=== PATIENT | male | born 1935 | race Caucasian/White ===

== ENCOUNTER → 2017-02-15 | Outpatient (CLI) | payer MEDICARE, BC | LOC: LAB 09:41 | DX: I10 Essential (primary) hypertension (principal); I48.2 Chronic atrial fibrillation; Z12.5 Encounter for screening for malignant neoplasm of prostate; E78.2 Mixed hyperlipidemia ==

== ENCOUNTER → 2017-03-12 | Outpatient (CLI) | payer MEDICARE, BC | LOC: LAB 10:10 | DX: E78.2 Mixed hyperlipidemia (principal); I48.2 Chronic atrial fibrillation ==

== ENCOUNTER 2018-06-16 15:00 | Emergency (ER) | payer MEDICARE, BC ==
[~2018-06-16] VITALS: Ht 182.9 cm; Wt 86.8 kg
[2018-06-16] MEDS ORDERED: PRAVACHOL 20MG20 MG PO (15:33)
[2018-06-16] MEDS ORDERED: OMEPRAZOLE40 MG PO (15:33)
[2018-06-16] MEDS ORDERED: LOPRESSOR 550 MG/TAB PO (15:33)
[2018-06-16] MEDS ORDERED: WARFARIN SOD5 MG PO (15:33)
[2018-06-16] MEDS ORDERED: FUROSEMIDE40 MG (15:33)
[2018-06-16] MEDS ORDERED: PACERONE100 MG PO (15:34)
[2018-06-16] MEDS ORDERED: VASOTEC 2.2.5 MG/TAB PO (15:34)
[2018-06-16] MEDS ORDERED: LEVOTHYROXINE0.05 MG PO (15:35)
[2018-06-16] MEDS ORDERED: METOLAZONE5 MG PO (16:50)
[2018-06-16 17:11] VITALS: BP 123/95
== END 2018-06-16 17:08 | disposition home or self-care (01) ==
LOC: ED 15:00
DX: I11.0 Hypertensive heart disease with heart failure (principal); I50.9 Heart failure, unspecified; I25.10 Atherosclerotic heart disease of native coronary artery without angina pectoris; Z95.1 Presence of aortocoronary bypass graft; Z95.5 Presence of coronary angioplasty implant and graft; I48.91 Unspecified atrial fibrillation; Z79.01 Long term (current) use of anticoagulants; Z95.0 Presence of cardiac pacemaker; Z79.899 Other long term (current) drug therapy
CPT/HCPCS: J1940; Q9967

== ENCOUNTER → 2018-06-16 | Outpatient (CLI) | payer MEDICARE, BC ==
[~2018-06-16] MED LIST: FUROSEMIDE40 MG; LEVOTHYROXINE0.05 MG PO; LOPRESSOR 550 MG/TAB PO; METOLAZONE5 MG PO; OMEPRAZOLE40 MG PO; PACERONE100 MG PO; PRAVACHOL 20MG20 MG PO; VASOTEC 2.2.5 MG/TAB PO; WARFARIN SOD5 MG PO
[2018-06-16 13:34] LABS: EOS % 0.6 % (0.0-4.0); HEMOGLOBIN 14.1 g/dL (13.5-18.0); MEAN CELL VOLUME 94 fl (78-100); MEAN CORPUSCULAR HEMOGLOBIN 31 pg (27-31); MEAN CORPUSCULAR HGB CONC 33 g/dL (33-37); MEAN PLATELET VOLUME 10.7 fl (7.4-10.4); MONO # 0.6 (0.20-0.80); NEU # 5.3 (1.40-6.50); PLATELET COUNT 95 K/mm3 (130-400); RED BLOOD COUNT 4.57 M/mm3 (4.20-5.60); RED CELL DISTRIBUTION WIDTH 15.3 % (11.5-14.5); WHITE BLOOD COUNT 6.9 K/mm3 (4.8-10.8)
[2018-06-16 13:47] LABS: PROTHROMBIN TIME 24.7 SECONDS (9.0-12.0)
[2018-06-16 13:50] LABS: ALBUMIN 3.6 g/dL (3.5-5.0); BUN/CREATININE RATIO 13.9 (6.0-26.0); CALCIUM 8.5 mg/dL (8.4-10.2); POTASSIUM 3.8 mmol/L (3.6-5.0); TOTAL BILIRUBIN 0.7 mg/dL (0.2-1.3); TOTAL PROTEIN 6.4 g/dL (6.3-8.2)
[2018-06-16 14:47] LABS: ERYTHROCYTE SEDIMENTATION RATE 14 mm/hr (0-20)
== END ==
LOC: RAD 13:19
PROVIDERS: Internal Medicine
DX: R06.00 Dyspnea, unspecified (principal); E78.5 Hyperlipidemia, unspecified; I48.91 Unspecified atrial fibrillation; I10 Essential (primary) hypertension; Z12.5 Encounter for screening for malignant neoplasm of prostate; Z12.11 Encounter for screening for malignant neoplasm of colon; Z95.1 Presence of aortocoronary bypass graft; Z95.9 Presence of cardiac and vascular implant and graft, unspecified; Z95.0 Presence of cardiac pacemaker; Z98.890 Other specified postprocedural states

== ENCOUNTER → 2018-06-23 | Outpatient (CLI) | payer MEDICARE, BC ==
[2018-06-16 17:11] VITALS: BP 123/95
== END ==
LOC: LAB 11:30
DX: I50.9 Heart failure, unspecified (principal)

== ENCOUNTER → 2018-06-24 | Outpatient (CLI) | payer MEDICARE, BC ==
[2018-06-16 17:11] VITALS: BP 123/95
[2018-06-24 18:43] LABS: ALBUMIN 4.3 g/dL (3.5-5.0); CALCIUM 9.1 mg/dL (8.4-10.2); TOTAL BILIRUBIN 0.8 mg/dL (0.2-1.3); TOTAL PROTEIN 7.7 g/dL (6.3-8.2)
[2018-06-24 19:53] LABS: POTASSIUM 2.4 mmol/L (3.6-5.0)
[2018-06-25 10:59] LABS: EOS % 0.4 % (0.0-4.0); HEMATOCRIT 47.2 % (42.0-52.0); HEMOGLOBIN 15.7 g/dL (13.5-18.0); LYMPH# 1.4 (1.50-4.00); MEAN CELL VOLUME 91 fl (78-100); MEAN CORPUSCULAR HEMOGLOBIN 30 pg (27-31); MEAN CORPUSCULAR HGB CONC 33 g/dL (33-37); MEAN PLATELET VOLUME 10.3 fl (7.4-10.4); MONO # 0.9 (0.20-0.80); NEU # 5.8 (1.40-6.50); PLATELET COUNT 156 K/mm3 (130-400); RED BLOOD COUNT 5.19 M/mm3 (4.20-5.60); RED CELL DISTRIBUTION WIDTH 14.4 % (11.5-14.5); WHITE BLOOD COUNT 8.2 K/mm3 (4.8-10.8)
== END ==
LOC: LAB 17:46
PROVIDERS: Internal Medicine
DX: I50.9 Heart failure, unspecified (principal); I25.10 Atherosclerotic heart disease of native coronary artery without angina pectoris; E03.9 Hypothyroidism, unspecified

== ENCOUNTER → 2018-06-30 | Outpatient (CLI) | payer MEDICARE, BC ==
[2018-06-16 17:11] VITALS: BP 123/95
[2018-06-30 11:32] LABS: CALCIUM 8.9 mg/dL (8.4-10.2); POTASSIUM 3.1 mmol/L (3.6-5.0); TOTAL BILIRUBIN 0.7 mg/dL (0.2-1.3); TOTAL PROTEIN 7.2 g/dL (6.3-8.2)
== END ==
LOC: LAB 10:52
PROVIDERS: Internal Medicine
DX: I50.9 Heart failure, unspecified (principal); I25.10 Atherosclerotic heart disease of native coronary artery without angina pectoris; E03.9 Hypothyroidism, unspecified

== ENCOUNTER → 2018-07-01 | Outpatient (CLI) | payer MEDICARE, BC ==
[2018-06-16 17:11] VITALS: BP 123/95
== END ==
LOC: CARDLAB 06-26 14:55 → CARDREHAB 11:45
DX: G47.33 Obstructive sleep apnea (adult) (pediatric) (principal); G47.10 Hypersomnia, unspecified; R06.83 Snoring; Z68.29 Body mass index [BMI] 29.0-29.9, adult; R06.00 Dyspnea, unspecified; R53.83 Other fatigue
CPT/HCPCS: G0399

== ENCOUNTER → 2018-07-08 | Outpatient (CLI) | payer MEDICARE, BC ==
[2018-06-16 17:11] VITALS: BP 123/95
[2018-07-08 15:47] LABS: POTASSIUM 3.2 mmol/L (3.6-5.0); TOTAL BILIRUBIN 0.5 mg/dL (0.2-1.3)
== END ==
LOC: LAB 14:46
PROVIDERS: Internal Medicine
DX: I50.9 Heart failure, unspecified (principal); I25.10 Atherosclerotic heart disease of native coronary artery without angina pectoris; I48.91 Unspecified atrial fibrillation; E03.9 Hypothyroidism, unspecified

== ENCOUNTER → 2018-08-18 | Outpatient (CLI) | payer MEDICARE, BC ==
[2018-08-18 10:57] LABS: CALCIUM 9.2 mg/dL (8.4-10.2); POTASSIUM 3.7 mmol/L (3.6-5.0)
== END ==
LOC: LAB 10:36
PROVIDERS: Internal Medicine
DX: I50.9 Heart failure, unspecified (principal)

== ENCOUNTER → 2018-10-29 | Outpatient (CLI) | payer MEDICARE, BC ==
[2018-10-29 10:30] LABS: EOS # 0.1 (0.04-0.40); EOS % 2.9 % (0.0-4.0); HEMATOCRIT 37.4 % (42.0-52.0); HEMOGLOBIN 12.1 g/dL (13.5-18.0); MEAN CELL VOLUME 96 fl (78-100); MEAN CORPUSCULAR HEMOGLOBIN 31 pg (27-31); MEAN CORPUSCULAR HGB CONC 32 g/dL (33-37); MEAN PLATELET VOLUME 10.1 fl (7.4-10.4); MONO # 0.5 (0.20-0.80); NEU # 3.2 (1.40-6.50); PLATELET COUNT 137 K/mm3 (130-400); RED BLOOD COUNT 3.89 M/mm3 (4.20-5.60); RED CELL DISTRIBUTION WIDTH 14.3 % (11.5-14.5); WHITE BLOOD COUNT 4.9 K/mm3 (4.8-10.8)
[2018-10-29 11:29] LABS: ALBUMIN 3.8 g/dL (3.5-5.0); CALCIUM 8.6 mg/dL (8.4-10.2); TOTAL BILIRUBIN 0.5 mg/dL (0.2-1.3); TOTAL PROTEIN 6.6 g/dL (6.3-8.2)
== END ==
LOC: LAB 10:19
PROVIDERS: Internal Medicine
DX: I50.22 Chronic systolic (congestive) heart failure (principal); I48.91 Unspecified atrial fibrillation; E03.9 Hypothyroidism, unspecified

== ENCOUNTER → 2019-03-27 | Outpatient (CLI) | payer MEDICARE, BC | LOC: LAB 11:57 | DX: L03.116 Cellulitis of left lower limb (principal); I83.228 Varicose veins of left lower extremity with both ulcer of other part of lower extremity and inflammation ==

== ENCOUNTER → 2019-04-14 | Outpatient (CLI) | payer MEDICARE, BC | LOC: LAB 14:37 | DX: I50.9 Heart failure, unspecified (principal) ==

== ENCOUNTER → 2019-04-23 | Outpatient (CLI) | payer MEDICARE, BC ==
[2019-04-23 17:13] LABS: POTASSIUM 3.7 mmol/L (3.5-5.1)
[2019-04-23 17:14] LABS: CALCIUM 9.4 mg/dL (8.3-10.5)
== END ==
LOC: LAB 16:31
PROVIDERS: Internal Medicine Cardiovascular Disease
DX: R06.02 Shortness of breath (principal)

== ENCOUNTER → 2020-01-18 | Outpatient (CLI) | payer MEDICARE, BC ==
[2020-01-18 10:40] LABS: HEMATOCRIT 41.3 % (42.0-52.0); HEMOGLOBIN 13.3 g/dL (13.5-18.0); MEAN CELL VOLUME 95 fl (78-100); MEAN CORPUSCULAR HEMOGLOBIN 31 pg (27-31); MEAN CORPUSCULAR HGB CONC 32 g/dL (33-37); MEAN PLATELET VOLUME 9.8 fl (7.4-10.4); PLATELET COUNT 196 K/mm3 (130-400); RED BLOOD COUNT 4.35 M/mm3 (4.20-5.60); RED CELL DISTRIBUTION WIDTH 13.6 % (11.5-14.5)
[2020-01-18 10:50] LABS: ALBUMIN 3.7 g/dL (3.4-4.8)
[2020-01-18 10:51] LABS: CALCIUM 9.5 mg/dL (8.3-10.5)
[2020-01-18 10:53] LABS: TOTAL PROTEIN 7.8 g/dL (6.2-8.1)
[2020-01-18 10:55] LABS: TOTAL BILIRUBIN 0.5 mg/dL (0.2-1.2); URINE APPEARANCE CLEAR; URINE BILIRUBIN NEGATIVE (NEGATIVE); URINE BLOOD NEGATIVE (NEGATIVE); URINE COLOR YELLOW; URINE KETONE NEGATIVE (NEGATIVE); URINE LEUKOCYTE ESTERASE NEGATIVE (NEGATIVE); URINE MUCUS PRESENT (NOT PRESENT); URINE NITRATE NEGATIVE (NEGATIVE); URINE PROTEIN(semi-quant) TRACE mg/dL (NEGATIVE); URINE UROBILINOGEN NORMAL (NORMAL); URINE WBC 0-1 /hpf (0-3)
[2020-01-18 10:59] LABS: LYMPHOCYTE 14 % (20-51); MONOCYTE 9 % (3-10); NEUTROPHILS 75 % (42-75)
[2020-01-18 11:00] LABS: MAGNESIUM 2.54 mg/dL (1.60-2.60)
[2020-01-18 12:19] LABS: ERYTHROCYTE SEDIMENTATION RATE 95 mm/hr (0-20)
[2020-01-18 22:08] LABS: TESTOSTERONE 270 ng/dL (221-716)
== END ==
LOC: LAB 10:28
PROVIDERS: Internal Medicine
DX: I25.10 Atherosclerotic heart disease of native coronary artery without angina pectoris (principal); I10 Essential (primary) hypertension; D64.9 Anemia, unspecified; E03.9 Hypothyroidism, unspecified; N52.9 Male erectile dysfunction, unspecified; R97.20 Elevated prostate specific antigen [PSA]; R20.2 Paresthesia of skin; R35.0 Frequency of micturition

== ENCOUNTER → 2020-02-26 | Outpatient (CLI) | payer MEDICARE, BC ==
[2020-02-26 12:13] LABS: ALBUMIN 3.7 g/dL (3.4-4.8); POTASSIUM 4.1 mmol/L (3.5-5.1)
[2020-02-26 12:16] LABS: TOTAL PROTEIN 7.4 g/dL (6.2-8.1)
[2020-02-26 12:18] LABS: TOTAL BILIRUBIN 0.4 mg/dL (0.2-1.2)
== END ==
LOC: LAB 11:54
PROVIDERS: Internal Medicine
DX: I11.0 Hypertensive heart disease with heart failure (principal); I25.10 Atherosclerotic heart disease of native coronary artery without angina pectoris; I50.82 Biventricular heart failure; R70.0 Elevated erythrocyte sedimentation rate

== ENCOUNTER → 2020-03-14 | Outpatient (CLI) | payer MEDICARE, BC ==
[2020-03-14 14:46] LABS: HEMATOCRIT 38.7 % (42.0-52.0); MEAN CELL VOLUME 95 fl (78-100); MEAN CORPUSCULAR HEMOGLOBIN 30 pg (27-31); MEAN CORPUSCULAR HGB CONC 31 g/dL (33-37); MEAN PLATELET VOLUME 10.2 fl (7.4-10.4); PLATELET COUNT 146 K/mm3 (130-400); RED BLOOD COUNT 4.07 M/mm3 (4.20-5.60); RED CELL DISTRIBUTION WIDTH 15.2 % (11.5-14.5); WHITE BLOOD COUNT 4.5 K/mm3 (4.8-10.8)
[2020-03-14 14:54] LABS: ALBUMIN 3.9 g/dL (3.4-4.8); POTASSIUM 3.8 mmol/L (3.5-5.1)
[2020-03-14 14:55] LABS: CALCIUM 8.6 mg/dL (8.3-10.5)
[2020-03-14 14:57] LABS: TOTAL PROTEIN 7.3 g/dL (6.2-8.1)
[2020-03-14 14:58] LABS: TOTAL BILIRUBIN 0.5 mg/dL (0.2-1.2)
[2020-03-14 15:03] LABS: MAGNESIUM 2.6 mg/dL (1.60-2.60)
[2020-03-14 15:45] LABS: PROTHROMBIN TIME 23.6 SECONDS (9.0-12.0)
[2020-03-14 15:51] LABS: URINE APPEARANCE CLEAR; URINE BILIRUBIN NEGATIVE (NEGATIVE); URINE BLOOD NEGATIVE (NEGATIVE); URINE COLOR LT YELLOW; URINE GLUCOSE NEGATIVE (NEGATIVE); URINE KETONE NEGATIVE (NEGATIVE); URINE LEUKOCYTE ESTERASE NEGATIVE (NEGATIVE); URINE NITRATE NEGATIVE (NEGATIVE); URINE PROTEIN(semi-quant) NEGATIVE (NEGATIVE); URINE UROBILINOGEN NORMAL (NORMAL); URINE WBC 0-1 /hpf (0-3)
[2020-03-14 15:52] LABS: LYMPHOCYTE 24 % (20-51); MONOCYTE 8 % (3-10); NEUTROPHILS 64 % (42-75)
== END ==
LOC: RAD 14:13
PROVIDERS: Internal Medicine
DX: Z01.818 Encounter for other preprocedural examination (principal); I48.20 Chronic atrial fibrillation, unspecified; E03.2 Hypothyroidism due to medicaments and other exogenous substances; G56.10 Other lesions of median nerve, unspecified upper limb

== ENCOUNTER → 2020-05-27 | Outpatient (CLI) | payer MEDICARE, BC | LOC: AMSURD 12:19 | DX: I48.91 Unspecified atrial fibrillation (principal); I25.10 Atherosclerotic heart disease of native coronary artery without angina pectoris; I10 Essential (primary) hypertension ==

== ENCOUNTER → 2021-06-16 | Outpatient (CLI) | payer MEDICARE, BC | LOC: RAD 16:10 | DX: M19.031 Primary osteoarthritis, right wrist (principal); M19.041 Primary osteoarthritis, right hand ==

== ENCOUNTER → 2022-03-22 | Outpatient (CLI) | payer MEDICARE, BC ==
[2022-03-22 17:23] LABS: POTASSIUM 4.3 mmol/L (3.5-5.1)
[2022-03-22 17:24] LABS: ALBUMIN 4.1 g/dL (3.4-4.8)
[2022-03-22 17:25] LABS: CALCIUM 9.9 mg/dL (8.3-10.5)
[2022-03-22 17:26] LABS: TOTAL PROTEIN 7.9 g/dL (6.2-8.1)
[2022-03-22 17:28] LABS: TOTAL BILIRUBIN 0.6 mg/dL (0.2-1.2)
[2022-03-22 17:33] LABS: MAGNESIUM 2.69 mg/dL (1.60-2.60)
[2022-03-22 18:06] LABS: BASO # 0.02 K/mm3 (0.02-0.10); EOS # 0.08 K/mm3 (0.04-0.40); EOS % 1.3 % (0.0-4.0); HEMATOCRIT 40.5 % (42.0-52.0); HEMOGLOBIN 13.1 g/dL (13.5-18.0); LYMPH# 1.38 K/mm3 (1.50-4.00); MEAN CELL VOLUME 86 fl (78-100); MEAN CORPUSCULAR HEMOGLOBIN 28 pg (27-31); MEAN CORPUSCULAR HGB CONC 32 g/dL (33-37); MEAN PLATELET VOLUME 11.3 fl (7.4-10.4); MONO # 0.65 K/mm3 (0.20-0.80); NEU # 4.25 K/mm3 (1.40-6.50); PLATELET COUNT 153 K/mm3 (130-400); RED BLOOD COUNT 4.69 M/mm3 (4.20-5.60); RED CELL DISTRIBUTION WIDTH 15.7 % (11.5-14.5); WHITE BLOOD COUNT 6.4 K/mm3 (4.8-10.8)
[2022-03-22 18:29] LABS: ERYTHROCYTE SEDIMENTATION RATE 68 mm/hr (0-20)
== END ==
LOC: LAB 16:53
PROVIDERS: Internal Medicine
DX: E78.2 Mixed hyperlipidemia (principal); E03.9 Hypothyroidism, unspecified; I50.9 Heart failure, unspecified; G56.03 Carpal tunnel syndrome, bilateral upper limbs; M25.531 Pain in right wrist; M79.641 Pain in right hand; M1A.0410 Idiopathic chronic gout, right hand, without tophus (tophi); I25.10 Atherosclerotic heart disease of native coronary artery without angina pectoris; I73.9 Peripheral vascular disease, unspecified; M65.839 Other synovitis and tenosynovitis, unspecified forearm

== ENCOUNTER → 2022-05-11 | Outpatient (CLI) | payer MEDICARE, BC ==
[2022-05-11 17:04] LABS: BASO # 0.02 K/mm3 (0.02-0.10); EOS # 0.07 K/mm3 (0.04-0.40); EOS % 1.2 % (0.0-4.0); HEMATOCRIT 38.7 % (42.0-52.0); HEMOGLOBIN 12.4 g/dL (13.5-18.0); LYMPH# 1.16 K/mm3 (1.50-4.00); MEAN CELL VOLUME 89 fl (78-100); MEAN CORPUSCULAR HEMOGLOBIN 29 pg (27-31); MEAN CORPUSCULAR HGB CONC 32 g/dL (33-37); MEAN PLATELET VOLUME 10.2 fl (7.4-10.4); MONO # 0.63 K/mm3 (0.20-0.80); NEU # 3.87 K/mm3 (1.40-6.50); PLATELET COUNT 98 K/mm3 (130-400); RED BLOOD COUNT 4.33 M/mm3 (4.20-5.60); RED CELL DISTRIBUTION WIDTH 16.4 % (11.5-14.5); WHITE BLOOD COUNT 5.8 K/mm3 (4.8-10.8)
[2022-05-11 17:19] LABS: ALBUMIN 3.9 g/dL (3.4-4.8); POTASSIUM 4.2 mmol/L (3.5-5.1)
[2022-05-11 17:20] LABS: CALCIUM 9.5 mg/dL (8.3-10.5)
[2022-05-11 17:21] LABS: TOTAL PROTEIN 7.2 g/dL (6.2-8.1)
[2022-05-11 17:23] LABS: TOTAL BILIRUBIN 0.6 mg/dL (0.2-1.2)
[2022-05-11 17:28] LABS: MAGNESIUM 2.26 mg/dL (1.60-2.60)
[2022-05-11 18:11] LABS: ERYTHROCYTE SEDIMENTATION RATE 53 mm/hr (0-20)
== END ==
LOC: LAB 16:03
PROVIDERS: Internal Medicine
DX: Z12.5 Encounter for screening for malignant neoplasm of prostate (principal); K90.9 Intestinal malabsorption, unspecified; I50.9 Heart failure, unspecified; E03.9 Hypothyroidism, unspecified; I48.20 Chronic atrial fibrillation, unspecified; E78.2 Mixed hyperlipidemia; I10 Essential (primary) hypertension

== ENCOUNTER → 2023-11-28 | Outpatient (CLI) | payer MEDICARE, BC ==
[2023-11-28 08:31] LABS: BASO # 0.02 K/mm3 (0.02-0.10); EOS # 0.15 K/mm3 (0.04-0.40); EOS % 3.2 % (0.0-4.0); HEMOGLOBIN 10.5 g/dL (13.5-18.0); LYMPH# 1.15 K/mm3 (1.50-4.00); MEAN CELL VOLUME 91 fl (78-100); MEAN CORPUSCULAR HEMOGLOBIN 28 pg (27-31); MEAN CORPUSCULAR HGB CONC 31 g/dL (33-37); MEAN PLATELET VOLUME 12.6 fl (7.4-10.4); MONO # 0.48 K/mm3 (0.20-0.80); NEU # 2.95 K/mm3 (1.40-6.50); PLATELET COUNT 76 K/mm3 (130-400); RED BLOOD COUNT 3.73 M/mm3 (4.20-5.60); RED CELL DISTRIBUTION WIDTH 16.2 % (11.5-14.5); WHITE BLOOD COUNT 4.8 K/mm3 (4.8-10.8)
[2023-11-28 08:51] LABS: ALBUMIN 3.8 g/dL (3.4-4.8)
[2023-11-28 08:55] LABS: TOTAL BILIRUBIN 0.8 mg/dL (0.2-1.2)
== END ==
LOC: LAB 08:12
PROVIDERS: Internal Medicine
DX: I50.9 Heart failure, unspecified (principal); D64.9 Anemia, unspecified; R06.00 Dyspnea, unspecified

== ENCOUNTER → 2024-04-09 | Outpatient (CLI) | payer MEDICARE, BC | LOC: RAD 10:00 | DX: M51.36 Other intervertebral disc degeneration, lumbar region (principal) ==

== ENCOUNTER → 2024-05-01 | Outpatient (CLI) | payer MEDICARE, BC ==
[2024-05-01 16:06] LABS: BASO # 0.01 K/mm3 (0.02-0.10); EOS # 0.11 K/mm3 (0.04-0.40); EOS % 1.6 % (0.0-4.0); HEMATOCRIT 32.2 % (42.0-52.0); HEMOGLOBIN 9.8 g/dL (13.5-18.0); LYMPH# 1.13 K/mm3 (1.50-4.00); MEAN CELL VOLUME 85 fl (78-100); MEAN CORPUSCULAR HEMOGLOBIN 26 pg (27-31); MEAN CORPUSCULAR HGB CONC 30 g/dL (33-37); MEAN PLATELET VOLUME 10.8 fl (7.4-10.4); MONO # 0.71 K/mm3 (0.20-0.80); NEU # 4.92 K/mm3 (1.40-6.50); PLATELET COUNT 121 K/mm3 (130-400); RED BLOOD COUNT 3.77 M/mm3 (4.20-5.60); WHITE BLOOD COUNT 6.9 K/mm3 (4.8-10.8)
[2024-05-01 16:13] LABS: ALBUMIN 3.7 g/dL (3.4-4.8)
[2024-05-01 16:14] LABS: CALCIUM 9.1 mg/dL (8.3-10.5)
[2024-05-01 16:16] LABS: TOTAL PROTEIN 7.1 g/dL (6.2-8.1)
[2024-05-01 16:17] LABS: TOTAL BILIRUBIN 0.8 mg/dL (0.2-1.2)
[2024-05-01 16:22] LABS: MAGNESIUM 2.65 mg/dL (1.60-2.60)
[2024-05-01 17:11] LABS: RED CELL DISTRIBUTION WIDTH 22.4 % (11.5-14.5)
== END ==
LOC: LAB 15:46
PROVIDERS: Internal Medicine
DX: I50.9 Heart failure, unspecified (principal)

== ENCOUNTER → 2024-07-02 | Outpatient (CLI) | payer MEDICARE, BC ==
[2024-07-02 12:34] LABS: CALCIUM 9.2 mg/dL (8.3-10.5)
== END ==
LOC: LAB 11:54
PROVIDERS: Internal Medicine Cardiovascular Disease
DX: I48.21 Permanent atrial fibrillation (principal); I50.23 Acute on chronic systolic (congestive) heart failure; I35.0 Nonrheumatic aortic (valve) stenosis; I25.112 Atherosclerotic heart disease of native coronary artery with refractory angina pectoris

== ENCOUNTER → 2024-07-21 | Outpatient (CLI) | payer MEDICARE, BC ==
[2024-07-21 10:58] LABS: CALCIUM 9.3 mg/dL (8.3-10.5)
== END ==
LOC: LAB 10:28
PROVIDERS: Nurse Practitioner Family
DX: I50.22 Chronic systolic (congestive) heart failure (principal); I48.91 Unspecified atrial fibrillation; I25.10 Atherosclerotic heart disease of native coronary artery without angina pectoris

== ENCOUNTER → 2024-07-22 | Outpatient (CLI) | payer MEDICARE, BC | LOC: LAB 09:39 | DX: I50.22 Chronic systolic (congestive) heart failure (principal); I51.0 Cardiac septal defect, acquired; I25.10 Atherosclerotic heart disease of native coronary artery without angina pectoris; I48.91 Unspecified atrial fibrillation ==